=== PATIENT | female | born 1965 | race Caucasian/White ===

== ENCOUNTER 2018-06-01 08:34 | Day surgery (SDC) | payer MEDICARE, MEDICAID ==
[2018-06-01] VITALS (10 sets, daily range): BP systolic 124–146; BP diastolic 85–96; PULSE 64–84; TEMP 98.2
[~2018-06-01] VITALS: Ht 160 cm; Wt 73.1 kg
[2018-06-01 09:39] LABS: HEMATOCRIT 43.4 % (37.0-47.0); HEMOGLOBIN 14.4 g/dl (12.5-16.0); MEAN CELL VOLUME 93 fl (80.0-100.0); MEAN CORPUSCULAR HEMOGLOBIN 31 pg (27.0-31.0); MEAN CORPUSCULAR HGB CONC 33 g/dl (33.0-37.0); PLATELET COUNT 274 K/mm3 (130-400); RED BLOOD COUNT 4.65 M/mm3 (4.10-5.30)
[2018-06-01 09:45] LABS: INR 0.9 (0.8-3.0); PROTHROMBIN TIME 10.7 SECONDS (9.7-12.8)
[2018-06-01 09:49] LABS: CALCIUM 9.6 mg/dL (8.4-10.2); CREATININE, serum 0.79 (0.52-1.25); POTASSIUM 4.7 mmol/L (3.4-5.0)
[2018-06-01] MEDS ORDERED: ASPIRIN E.C. 8181 MG PO (10:39)
[2018-06-01] MEDS ORDERED: HCTZ 25MG TAB25 MG PO (10:40)
[2018-06-01] MEDS ORDERED: ABILIFY2 MG PO (10:40)
[2018-06-01] MEDS ORDERED: MEVACOR10 MG PO (10:41)
[2018-06-01] MEDS ORDERED: CELEBREX 200MG200 MG PO (10:42)
[2018-06-01] MEDS ORDERED: REXULTI1 MG PO (10:43)
[2018-06-01] MEDS ORDERED: TENORMIN 2525 MG/TAB PO (10:43)
[2018-06-01] MEDS ORDERED: DESYREL 100MG100 MG PO (10:44)
[2018-06-01] MEDS ORDERED: NITROSTAT0.4 MG/TAB SL (10:44)
[2018-06-01] MEDS ORDERED: ATROVENT INHALE14 GM IH (10:45)
--- NOTE | 2018-06-01 11:56 | NUR ---
SEE MERGE FOR ALL MEDICATION ADMINISTRATION TIMES,SEE MERGE FOR ALL RASS ASSESSMENTS.
--- NOTE | 2018-06-01 12:15 | NUR ---
PT BACK TO ROOM 15 POST CARDIAC CATH. VSS AND AX0X3. RIGHT FEMORAL SITE IS C/D/I AND SOFT ON PALPATION. PULSES READILY PALPABLE. DENIES PAIN AND IS RESTING IN BED AT THIS TIME.
--- NOTE | 2018-06-01 15:00 | NUR ---
PT VSS AND AX0X3 POST CARDIAC CATH. RIGHT FEMORAL SITE REMAINED C/D/I AND SOFT ON PALPATION. PT TOLERATED FOOD AND FLUIDS PO WITHOUT ISSUE. AMBULATED AROUND NURSES STATION WITHOUT ISSUE. 20G REMOVED FROM RIGHT AC AND WRAPPED. DISCHARGE INSTRUCTIONS REVIEWED AND SIGNED. PT WHEELED OUT SAFELY BY NS AND TONY FOLLOWED BUSINESS TAXES SPECIALIST.
== END 2018-06-01 15:00 | disposition home or self-care (01) ==
LOC: COL.CAR 08:34
PROVIDERS: Internal Medicine Interventional Cardiology
DX: I25.119 Atherosclerotic heart disease of native coronary artery with unspecified angina pectoris (principal); I10 Essential (primary) hypertension; E78.5 Hyperlipidemia, unspecified; F17.210 Nicotine dependence, cigarettes, uncomplicated; F32.9 Major depressive disorder, single episode, unspecified; Z79.899 Other long term (current) drug therapy; Z79.82 Long term (current) use of aspirin; I07.1 Rheumatic tricuspid insufficiency
CPT/HCPCS: J1644; J2250; J3010; Q9967

== ENCOUNTER 2020-11-24 11:28 | Day surgery (SDC) | payer MEDICARE, MEDICAID ==
[2020-11-24] VITALS (10 sets, daily range): BP systolic 105–115; BP diastolic 71–91; PULSE 64–89; TEMP 97.9
[~2020-11-24] VITALS: Ht 160 cm; Wt 72.9 kg
[~2020-11-24 11:28] MED LIST: ABILIFY2 MG PO; ASPIRIN E.C. 8181 MG PO; ATROVENT INHALE14 GM IH; CELEBREX 200MG200 MG PO; DESYREL 100MG100 MG PO; HCTZ 25MG TAB25 MG PO; MEVACOR10 MG PO; NITROSTAT0.4 MG/TAB SL; REXULTI1 MG PO; TENORMIN 2525 MG/TAB PO
[2020-11-24 12:22] LABS: HEMATOCRIT 39.4 % (37.0-47.0); HEMOGLOBIN 13.4 g/dl (12.5-16.0); MEAN CELL VOLUME 87 fl (80.0-100.0); MEAN CORPUSCULAR HEMOGLOBIN 30 pg (27.0-31.0); MEAN CORPUSCULAR HGB CONC 34 g/dl (33.0-37.0); MEAN PLATELET VOLUME 10.1 fl (7.4-10.4); PLATELET COUNT 280 K/mm3 (130-400); RED BLOOD COUNT 4.55 M/mm3 (4.10-5.30); REDCELL DISTRIBUTION WIDTH-CV 12.8 % (11.5-14.5)
[2020-11-24] MEDS ORDERED: PRINZIDE 12.5 M1 TAB PO (12:38)
[2020-11-24 12:39] LABS: INR 1.1 (0.8-3.0); PROTHROMBIN TIME 11.7 SECONDS (9.7-12.8)
[2020-11-24] MEDS ORDERED: VENTOLIN0.09 MG IH (12:39)
[2020-11-24 12:42] LABS: PARTIAL THROMBOPLASTIN TIME 30.6 SECONDS (26.0-37.0)
--- NOTE | 2020-11-24 13:02 | NUR ---
Initial visit; Patient and her thanked Telephone Collector for looking in on her and offering prayer prior to her 'Procedure.' Telephone Collector wished patient well.
[2020-11-24 13:52] LABS: CALCIUM 9.9 mg/dL (8.4-10.2); CREATININE, serum 0.78 mg/dL (0.57-1.11); POTASSIUM 3.4 mmol/L (3.5-4.5)
--- NOTE | 2020-11-24 16:46 | NUR ---
Pt back from kiln labourer, bs report from Ester TRENT. Pt is very drowsy, but arousable to voice. no complaints. TR band to rt wrist, cms intact distal. I spoke with pt's fiancee about poc and discharge plan. call light in reach, dinner ordered. WCTM
[2020-11-24 18:05] LABS: CHOLESTEROL RISK RATIO 4.8
--- NOTE | 2020-11-24 18:23 | NUR ---
Pt is doing well, she has eaten dinner and has been up with steady gait to the bathroom. I reviewed dc/fu instructions with patient and her fiancee. She verbalized understanding. Bedside report given to Valentina TRENT who will deflate band and escort pt to exit.
--- NOTE | 2020-11-24 19:16 | NUR ---
12 CC air released from right Tband and dressing applied. INT discontinued intact. Discharge instructions given.
--- NOTE | 2020-11-24 19:28 | NUR ---
Transferred to private car by manuel
== END 2020-11-24 19:28 | disposition home or self-care (01) ==
LOC: COL.CAR 11:28
PROVIDERS: Internal Medicine Interventional Cardiology
DX: R07.89 Other chest pain (principal); R94.39 Abnormal result of other cardiovascular function study; I10 Essential (primary) hypertension; I20.9 Angina pectoris, unspecified; E78.5 Hyperlipidemia, unspecified; F17.200 Nicotine dependence, unspecified, uncomplicated; Z79.82 Long term (current) use of aspirin; Z79.899 Other long term (current) drug therapy
CPT/HCPCS: C1769; J1644; J2250; J3010

== ENCOUNTER → 2023-10-09 | Outpatient (CLI) | payer OTHER, MEDICAID ==
[~2023-10-09] MED LIST changes: +Albuterol 0.083% Neb Soln 2.5 MG/3 ML UD IH ONE; +Iohexol 300 - 100 ML VIAL IV ONE; +NS 100 ML IV SCH; +PRINZIDE 12.5 M1 TAB PO; +VENTOLIN0.09 MG IH
== END ==
LOC: COL.RAD 09:00
DX: R05.9 Cough, unspecified (principal)
CPT/HCPCS: Q9967